=== PATIENT | female | born 1985 | race Caucasian/White ===

== ENCOUNTER → 2025-03-28 | Outpatient (CLI) | payer OTHER ==
--- NOTE | 2025-03-28 09:32 | US ---
EXAMINATION TYPE: US liver DATE OF EXAM: 03/28/2025 COMPARISON: NONE CLINICAL INDICATION: Female, 39 years old with history of R74.8 ABNORMAL LEVELS OF OTHER SERUM ENZYME S; Abnormal labs. TECHNIQUE: Grayscale and color Doppler imaging of the right upper quadrant was performed. FINDINGS: EXAM MEASUREMENTS: Liver Length: 12.7 cm Gallbladder Wall: .2 cm CBD: .2 cm Right Kidney: 8.9 x 3.9 x 5.0 cm [employer]IX SYSTEM ADMINISTRATOR NOTES: Pancreas: Tail obscured by overlying bowel gas Liver: Increased attenuation Gallbladder: No stones seen Evidence for sonographic Tao's sign: No CBD: wnl Right Kidney: No hydronephrosis or masses seen IMPRESSION: 1. No acute interval quadrant ultrasound abnormality [facility], , 03/28/2025 9:30 AM
== END | disposition home or self-care (01) ==
LOC: RADUSWWP 08:57
PROVIDERS: ATTEND Internal Medicine
DX: R74.8 Abnormal levels of other serum enzymes (principal)
CPT/HCPCS: 76705